=== PATIENT | female | born 2000 | race Caucasian/White ===

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

== ENCOUNTER 2023-08-31 10:55 | Emergency (ER) | payer BC, MEDICAID ==
[2023-08-31] MEDS ORDERED: Take Home: Acetaminophen/HYDROcodone 325-5 MG, 2 Tab Pack PO ONE (11:14)
[2023-08-31 12:22] VITALS: BP 130/72; PULSE 92
== END 2023-08-31 11:30 | disposition home or self-care (01) ==
LOC: CC.ED 10:55
DX: S92.351A Displaced fracture of fifth metatarsal bone, right foot, initial encounter for closed fracture (principal); Z79.899 Other long term (current) drug therapy; X50.1XXA Overexertion from prolonged static or awkward postures, initial encounter
CPT/HCPCS: 73630-RT; 99283; A9270-GY